=== PATIENT | male | born 1955 | race Caucasian/White ===

== ENCOUNTER 2017-06-15 09:47 | Day surgery (SDC) | payer MEDICARE, BC ==
[~2017-06-15 09:47] MED LIST: LIDOCAINE HCL 1% MPF SOL ONE; PROPOFOL 500 MG/50 ML EMU IV ONE
[2017-06-15 12:05] VITALS: TEMP 98
[2017-06-15 12:35] VITALS: BP 115/81; PULSE 69; RESP 18; O2SAT 94
== END 2017-06-15 12:52 | disposition home or self-care (01) | DRG 951 ==
LOC: SURG 09:47
PROVIDERS: ATTEND Internal Medicine Gastroenterology
DX: Z12.11 Encounter for screening for malignant neoplasm of colon (principal); K57.30 Diverticulosis of large intestine without perforation or abscess without bleeding; Z86.010 Personal history of colon polyps; K64.8 Other hemorrhoids
CPT/HCPCS: J2001; J2704